=== PATIENT | female | born 1945 | race Caucasian/White ===

== ENCOUNTER 2016-05-25 03:37 | Inpatient (IN) | payer OTHER, MEDICARE ==
[~2016-05-25] VITALS: Ht 167.6 cm; Wt 74.8 kg
[~2016-05-25 03:37] MED LIST: ASPIRIN EC325 M2 PO; COLACE100 M1 PO; COZAAR50 M1 PO; DILAUDID2 M1 PO; DILTIAZEM 24HR120 MG PO; MIRALAX17 G1 PO; PRAVACHOL40 M1 PO; ZOLPIDEM TARTRA10 M1 PO
--- NOTE | 2016-05-25 12:36 | Admission Core Measures ---
Admission Meds I reviewed the following Meds: Current Medications Sig/Yesi Start time Last Medication Dose Stop Time Status Admin Acetaminophen 975 MG ONCE 05/25 0000 NR (Tylenol) 05/25 2358 Cefazolin Sodium 2,000 MG ONCE 05/25 0000 NR (Kefzol-Ancef Inj) 05/25 2358 Diltiazem HCl 120 MG DAILY 05/26 1000 UNVr (Cardizem CD) Losartan Potassium 50 MG DAILY 05/26 1000 UNVr (Cozaar) Oxycodone HCl 10 MG ONCE 05/25 0000 NR (Roxicodone) 05/25 2358 Pravastatin Sodium 40 MG DAILY 05/26 1000 UNVr (Pravachol) Ropivacaine 500 ML ONCE ONE 05/25 1230 AC (NAROPIN) 05/27 0609 ON-Q Ball 1 BAG Zolpidem Tartrate 10 MG QPM 05/25 2200 UNVr (Ambien) Acute Coronary Syndrome Inclusion Criteria ACS Diagnosis No Inpatient Core Measures LDL Reminder: If No, please order W/I first 24hr of stay Congestive Heart Failure Inclusion Criteria CHF Diagnosis No Cerebrovascular accident Inclusion Criteria CVA/TIA Diagnosis No Inpatient Core Measures Bedside Swallow Eval Reminder: If BSE failed, place ST order Antithrombotic Reminder: Order Antithrombotic Medication by end of day 2 Antithrombotic Reminder: Document Reason Antithrombotic Not ordered by end of day 2 AFIB/Flutter Reminder: If Present, add to problem list AFIB/Flutter Reminder: Order Anticoag Medication for pts with AFIB/Flutter Atherosclerosis Reminder: If Present, add to problem list LDL Reminder: If No, please order W/I first 24hr of stay PT Order Reminder: If No, please order Venous thromboembolism Inpatient Core Measures VTE Risk Factors: Age > 40, Surgery VTE Prophylaxis Ordered Inpt [facility] No [facility] VTE prophylaxis d/t No contraindications No VTE Pharm Prophylaxis d/t No contraindications Inclusion Criteria - Per Current guidelines, there needs to be overlap - treatment for the first 5 days of Warfarin therapy. - Parenteral Anticoagulation (IV or SC) needs to be - given along with Warfarin therapy. VTE Diagnosis No VTE Type NONE VTE Confirmed by (Test) NONE Problem List As ranked by this Provider includes Assessment & Plan 1. Unilateral primary osteoarthritis, left knee HOME MEDS Home Med List Diltiazem HCl (Diltiazem 24HR ER) 120 MG CAP.ER.24H 1 CAP PO DAILY HEART ( Reported) Docusate Sodium (Colace) 100 MG CAPSULE 1 CAP PO DAILY CONSTIPATION (Reported ) Losartan Potassium (Cozaar) 50 MG TABLET 1 TAB PO DAILY BP (Reported) Pravastatin Sodium (Pravachol) 40 MG TABLET 1 TAB PO DAILY CHOLESTEROL ( Reported) Zolpidem Tartrate 10 MG TABLET 1 TAB PO QPM SLEEP (Reported)
[2016-05-25] MEDS ORDERED: ASPIRIN EC325 M2 PO (12:39)
[2016-05-25] MEDS ORDERED: MIRALAX17 G1 PO (12:39)
[2016-05-25] MEDS ORDERED: MS CONTIN15 M2 PO (12:39)
[2016-05-25] MEDS ORDERED: DILAUDID2 M1 PO (12:39)
[2016-05-25] MEDS ORDERED: COLACE100 M1 PO (12:39)
--- NOTE | 2016-05-25 12:42 | Patient Discharge Instructions ---
Discharge Instructions General Discharge Information You were seen/treated for: Left knee pain You had these procedures: Left total knee replacement Watch for these problems: Increasing pain, redness, warmth, swelling. Drainage of any type from incision. Inability to bear weight on left leg. Do not soak the wound: Yes No bath, but you may shower: Yes Special Instructions: Incision: Dry dressing. May shower. No baths. No ointments of any kind. Ice as needed. Bowel regimen: Colace and or MiraLAX Weight-bearing as tolerated Follow-up with Dr. Mullins in 6 weeks. Call office for fevers greater than 101.5, excessive drainage or inability to bear weight on operative extremity. Visiting nurse will change dressing. Diet Continue normal diet: Yes Recommended Diet: Heart Healthy Additional DIET Information: Advance diet as tolerated Activity Full Activity/No Limits: No Activity Self Limited: Yes Pounds, do NOT lift more than: 10 Additional ACTIVITY Info: Weight-bear as tolerated on left leg Acute Coronary Syndrome Inclusion Criteria At DC or during hospital stay patient has or had the following: ACS DIAGNOSIS No Discharge Core Measures Meds if any: Prescribed or Continued at Discharge Meds if any: NOT Prescribed or Continued at Discharge Congestive Heart Failure Inclusion Criteria At DC or during hospital stay patient has or had the following: CHF DIAGNOSIS No Discharge Core Measures Meds if any: Prescribed or Continued at Discharge Meds if any: NOT Prescribed or Continued at Discharge Cerebrovascular accident Inclusion Criteria At DC or during hospital stay patient has or had the following: CVA/TIA Diagnosis No Discharge Core Measures Meds if any: Prescribed or Continued at Discharge Meds if any: NOT Prescribed or Continued at Discharge Venous thromboembolism Inclusion Criteria VTE Diagnosis No VTE Type NONE VTE Confirmed by (Test) NONE Discharge Core Measures - Per Current guidelines, there needs to be overlap - treatment for the first 5 days of Warfarin therapy. - If discharged on Warfarin prior to 5 days of - overlap therapy, the patient will need to be - assessed for post discharge needs including - *Post discharge parental anticoagulation - *Warfarin and/or parental anticoagulation education - *Follow up date to check INR post discharge At least 5 days overlap therapy as Inpatient No Meds if any: Prescribed or Continued at Discharge Note: Overlap Therapy is Warfarin and Anticoagulant Meds if any: NOT Prescribed or Continued at Discharge
--- NOTE | 2016-05-25 12:44 | Surgical Discharge Summary ---
See Addendum Visit Information Visit Dates Admission Date: 05/25/16 Discharge Date: 05/28/16 History of Present Illness Chief Complaint: Left knee pain Medical History History of MRSA: No History of VRE: No History of CDIFF: No Isolation History: Standard Pneumonia Vaccine: 02/19/14 Surgical History Pertinent Surgical History: BILATERAL MASTECTOMY CYSTOCEL REPAIR CHOLESYSTECTOMY TONSILLS REMOVED VAGINAL HYSTERECTOMY TUBES TIED REPAIR OF BILAT BREAST IMPLANTS Psychosocial History Who Do You Live With? Spouse What is Your Primary Language? Nigerien Review of Systems: See H&P Hospital Course Course Attending Physician: IAN GALDAMEZ MD Primary Care Physician: JOE RUVALCABA,[place] Hospital Course: Patient was admitted to the hospital on 05/25/2016 for an elective left total knee replacement. She tolerated the procedure well. She was transferred to a general surgical floor. Her diet was advanced and tolerated. Her vital signs were stable and within normal limits. She voided spontaneously. Her pain was well controlled. She was evaluated and treated by physical therapy. She was deemed appropriate for discharge. Allergies: Coded Allergies: No Known Allergies (12/24/15) Disposition Summary Disposition Principal Diagnosis: Left knee unilateral primary osteoarthritis Additional Diagnosis: None Discharge Disposition: home health services Discharge Instructions General Discharge Information Code Status: Full Code Patient's Diet: Heart healthy, advance as tolerated Patient's Activity: Weight-bear as tolerated on left leg Follow-Up Instructions/Appts: Incision: Dry dressing. May shower. No baths. No ointments of any kind. Ice as needed. Bowel regimen: Colace and or MiraLAX Weight-bearing as tolerated Follow-up with Dr. Galdamez in 6 weeks. Call office for fevers greater than 101.5, excessive drainage or inability to bear weight on operative extremity. Visiting nurse will change dressing. Medications at Discharge Discharge Medications: Stop taking the following medications: Docusate Sodium (Colace) 100 MG CAPSULE ORAL DAILY Continue taking these medications: Losartan Potassium (Cozaar) 50 MG TABLET 1 Tablet ORAL DAILY Comments: Last Taken:12/31/15 Time:1031AM Diltiazem HCl (Diltiazem 24HR ER) 120 MG CAP.ER.24H 1 Capsule ORAL DAILY Comments: Last Taken:12/31/15 Time:1030AM Pravastatin Sodium (Pravachol) 40 MG TABLET 1 Tablet ORAL DAILY Comments: Last Taken:12/30/15 Time:845PM Zolpidem Tartrate (Zolpidem Tartrate) 10 MG TABLET 1 Tablet ORAL Every night Comments: Last Taken:12/30/15 Time:845PM Start taking the following new medications: Morphine Sulfate (Ms Contin) 15 MG TABLET.ER 1 Tablet ORAL TWICE DAILY Qty = 6 No Refills Hydromorphone HCl (Dilaudid) 2 MG TABLET 1-2 Tablet ORAL Q4-6H as needed for PAIN Qty = 36 No Refills Aspirin (Ecotrin*) 325 MG TABLET.DR 1 Tablet ORAL TWICE DAILY Qty = 60 No Refills Docusate Sodium (Colace) 100 MG CAPSULE 1 Capsule ORAL TWICE DAILY Qty = 14 No Refills Instructions: DISCONTINUE USE IF YOU DEVELOP LOOSE STOOL OR DIARRHEA Polyethylene Glycol 3350 (Miralax) 17 GRAM POWD.PACK 1 Packet ORAL DAILY Qty = 7 No Refills Instructions: dissolve in water, DISCONTINUE USE IF YOU DEVELOP LOOSE STOOL OR DIARRHEA
--- NOTE | 2016-05-25 14:24 | Operative Report ---
Operative/Inv Procedure Report Surgery Date: 05/25/16 Name of Procedure: Left total knee replacement Pre-Operative Diagnosis: Primary left knee DJD Post-Operative Diagnosis: Same Estimated Blood Loss: 50ml to 100ml Surgeon/Grinding Machine Operator Portable: DENICE RUVALCABA,IAN Dias Anesthesia: block Operative/Procedure Note Note: Description of Procedure: The patient was taken to the operating room and positively identified. After induction of spinal anesthesia and administration of appropriate pre-operative antibiotics, the patient was positioned supine on the operating room table and all bony prominences were well padded. A well-padded pneumatic tourniquet was placed on the left upper thigh. After performing a surgical timeout, the left lower extremity was prepped and draped in the usual sterile fashion. After exsanguination with Esmarch the tourniquet was inflated to 250mm of mercury. A standard medial parapatellar approach was made to the knee. This was carried down through skin and subcutaneous tissue to the level of the fascia. Meticulous hemostasis was maintained with Bovie electrocautery. The extensor mechanism and patellar retinaculum were opened sharply and the patella was everted. The infrapatellar fat was resected in order to improve exposure. Osteophytes were trimmed from the patella and femoral condyles and the patella was re-everted and tucked laterally. A medial release was performed and the cruciate ligaments were resected. The tibia was then subluxed anteriorly. Utilizing the appropriate extra-medullary guide, the proximal tibia was trimmed perpendicular to the long axis of the tibial shaft. Attention was then turned to the femur. After opening the medullary canal, the distal femoral cut was made in 6 degrees of valgus utilizing the appropriate intra-medullary guide. The extension gap was checked and found to be appropriate. The femur was then sized and the remainder of the femoral cuts were made with a size 4 4-in-1 femoral cutting guide. The flexion gap was checked and found to be symmetric and appropriate. The knee was then trialed with a size 4 femoral component, a size 4 tibial component and a size 9 mm polyethylene insert. The patella was trimmed to accept an A 35 patella. This yielded excellent range of motion, stability and patellar tracking. All trial components were removed and the knee was copiously irrigated with sterile saline. All components were cemented into place with Cary Simplex cement. All the components were of the Fazal Triathlon knee system of the above stated sizes. The knee was again irrigated after cementation. The extensor mechanism and patellar retinaculum were repaired using interrupted #1 vicryl suture. The skin was re-approximated with 2-0 vicryl and closed with camacho. A sterile dressing was applied, the tourniquet was deflated, the patient was awakened and taken to the recovery room in satisfactory condition.
[2016-05-25 15:22] VITALS: BP 136/80
--- NOTE | 2016-05-25 15:47 | PN- Orthopedic ---
Subjective Subjective: POC S/P LEFT TKA COMFORTABLE, NO MAJOR COMPLAINTS DENIES CP, SOB, NO N+V Objective Vital Signs and I&Os YES Physical Exam: CV: RRR LUNGS: CLEAR ABD: +BS, NT/ND, EXT: LEFT LE DRSG DRY DISTAL CMS INTACT ONQ IN PLACE RAMON: CLEAR URINE Assessment/Plan Assessment/Plan ORTHO STABLE PLAN D/C IVF, D/C RAMON ASA FOR DVT PROPHYLAXIS ALPS OOB WITH PT WBAT LEFT LEG HOME D/C PLANNING Core Measures/Miscellaneous Venous Thromboembolism VTE Risk Factors: Age > 40, Surgery VTE Contraindications: No Contraindications VTE Prophylaxis Ordered Inpt: Mech & Pharm VTE Diagnosis: No VTE Type: NONE VTE Confirmed by (Test): NONE Beta Sterling Is Beta Sterling a Home Med? Yes Antibiotics Is Patient on Antibiotics? Yes
[2016-05-25 18:19] VITALS: BP 140/70
[2016-05-25 20:00] VITALS: BP 140/60
[2016-05-25 20:12] VITALS: BP 140/70
[2016-05-25 22:13] VITALS: BP 130/70
--- NOTE | 2016-05-25 22:42 | NUR ---
1522 PATIENT ARRIVED TO FLOOR BED LOW AND LOCKED. CALL LIGHT WITHIN REACH ALERT AND ORIENTED X 3. VITAL SIGNS STABLE. ON 2L VIA NASAL CANNULA. DRESSING TO LEFT KNEE IS CLEAN, DRY, AND INTACT. NO DISTRESS NOTED AT THIS TIME. WILL COMINUE TO MONITOR
[2016-05-26] VITALS (7 sets, daily range): BP systolic 112–160; BP diastolic 54–80
--- NOTE | 2016-05-26 07:20 | PN- Orthopedic ---
Subjective Subjective: NAEO. Patient without new c/o. Pain controlled. Tolerating diet without n/v. Has been OOB and ambulating about 4 times so far. Denies numbness/tingling in LLE. Voiding. Denies CP/SOB. Objective Vital Signs and I&Os Vital Signs Date Time Temp Pulse Resp B/P Pulse O2 O2 Flow FiO2 Ox Delivery Rate 05/26 0640 97.6 71 18 122/68 94 Room Air 05/26 0153 97.7 74 18 128/70 95 Room Air 05/25 2213 97.7 86 20 130/70 93 Room Air 05/25 2011 98.0 60 20 140/70 95 Room Air 05/25 1999 98.0 60 20 140/60 95 Room Air 05/25 1819 97.7 67 20 140/70 96 Room Air 05/25 1557 99 Nasal 2.0L Cannula 05/25 1522 97.8 55 28 136/80 99 Nasal 2.0L Cannula Intake & Output 05/26 0800 05/26 0000 05/25 1600 05/25 0800 05/25 0000 05/24 1600 Intake Total 500 Output Total 700 Balance -200 Intake, Oral 500 Output, Urine 700 Patient 165 lb Weight Physical Exam: General: NAD, comfortable, A&Ox3 Chest: NRD, breathing comfortably on RA. RRR. Abdomen: soft, nontender, nondistended. Ext: Left knee dressing c/d/i. Left on-q pump in place. No calve swelling/TTP, neurovascularly intact bilateral lower extremities Current Medications: Current Medications Sig/Yesi Start time Last Medication Dose Route Stop Time Status Admin Acetaminophen 650 MG Q4P PRN 05/25 1600 AC PO Acetaminophen 975 MG ONCE 05/25 0000 DC PO 05/25 235 Aspirin 325 MG BID 05/25 2199 AC 05/25 PO 2123 Cefazolin Sodium 2 GM Q8H 05/25 1800 DC 05/26 N/A 1 UNIT IV 05/26 0229 0149 Cefazolin Sodium 2 GM IQ8 05/25 1600 DC N/A 1 UNIT IV 05/26 0029 Cefazolin Sodium 2,000 MG ONCE 05/25 0000 DC IV 05/25 2359 Diltiazem HCl 120 MG DAILY 05/26 1000 DC PO Diltiazem HCl 120 MG DAILY 05/26 1000 AC PO Docusate Sodium 100 MG BID 05/25 2200 AC 05/25 PO 2123 Fentanyl Citrate 100 MCG .STK-MED ONE 05/25 09 DC IM 05/25 09 Hydromorphone HCl 2 MG Q4P PRN 05/25 1600 AC 05/26 PO 0635 Hydromorphone HCl 4 MG Q4P PRN 05/25 1600 AC 05/25 PO 1857 Ketorolac 15 MG Q6-PRN PRN 05/25 1545 AC Tromethamine IV Losartan Potassium 50 MG DAILY 05/26 1000 DC PO Losartan Potassium 50 MG DAILY 05/26 1000 AC PO Midazolam HCl 2 MG .STK-MED ONE 05/25 09 DC IM 05/25 0927 Morphine Sulfate 2 MG Q2P PRN 05/25 1600 AC IV Omeprazole 40 MG DAILY AC 05/26 0700 AC 05/26 PO 0623 Ondansetron HCl 4 MG Q6P PRN 05/25 1600 AC IV Oxycodone HCl 10 MG .STK-MED ONE 05/25 1159 DC PO 05/25 1200 Oxycodone HCl 10 MG ONCE 05/25 0000 DC PO 05/25 2359 Polyethylene Glycol 17 GM DAILY 05/26 1000 AC PO Pravastatin Sodium 40 MG DAILY 05/26 1000 DC PO Pravastatin Sodium 40 MG DAILY 05/26 1000 AC PO Promethazine HCl 12.5 MG Q6P PRN 05/25 1600 AC IV 06/01 1229 Ropivacaine 500 ML ONCE ONE 05/25 1600 AC 05/25 ON-Q Ball 1 BAG INJ 05/27 0939 1600 Ropivacaine 500 ML ONCE ONE 05/25 1230 DC ON-Q Ball 1 BAG INJ 05/27 0609 Tranexamic Acid 1,000 MG .STK-MED ONE 05/25 09 DC IV 05/25 09 Zolpidem Tartrate 10 MG QPM 05/25 2200 DC PO Zolpidem Tartrate 10 MG QPM 05/25 2200 AC 05/25 PO 2124 Results Last 48 Hours of Labs: Laboratory Tests 05/26 05/26 0640 0600 Chemistry Sodium Pending Cancelled Potassium Pending Cancelled Chloride Pending Cancelled Carbon Dioxide Pending Cancelled Anion Gap Pending Cancelled BUN Pending Cancelled Creatinine Pending Cancelled BUN/Creatinine Ratio Pending Cancelled Hematology CBC w Diff Pending Cancelled WBC Pending Cancelled RBC Pending Cancelled Hgb Pending Cancelled Hct Pending Cancelled MCV Pending Cancelled MCH Pending Cancelled RDW Pending Cancelled Plt Count Pending Cancelled MPV Pending Cancelled PUBS MCHC Pending Cancelled Assessment/Plan Assessment/Plan 71yo F POD#1 s/p left TKA. AVSS, patient stable. - pain control - DC IVF - OOB and ambulate with PT - bowel regimen - I/O's - f/u a.m. labs - ASA 325mg PO BID - ALPS - Likely dc tomorrow - will d/w attending Core Measures/Miscellaneous Venous Thromboembolism VTE Risk Factors: Age > 40, Surgery VTE Contraindications: No Contraindications VTE Prophylaxis Ordered Inpt: Mech & Pharm VTE Diagnosis: No VTE Type: NONE VTE Confirmed by (Test): NONE Beta Sterling Is Beta Sterling a Home Med? Yes Antibiotics Is Patient on Antibiotics? No
[2016-05-26 08:12] LABS: ABSOLUTE BASOPHIL COUNT 0 /CUMM (0.0-0.2); ABSOLUTE EOSINOPHIL COUNT 0 /CUMM (0.0-0.7); ABSOLUTE GRANULOCYTE CT 13.6 /CUMM (1.4-6.5); ABSOLUTE LYMPH COUNT 0.9 /CUMM (1.2-3.4); ABSOLUTE MONOCYTE COUNT 0.5 /CUMM (0.10-0.60); BASOPHIL % 0.2 % (0.0-2.0); EOSINOPHIL % 0 % (0-5); MEAN CORPUSCULAR HGB 30.5 PG (27.0-31.0); MEAN CORPUSCULAR HGB CONC 34.1 G/DL (33.0-37.0); MEAN CORPUSCULAR VOLUME 89.3 FL (81.0-99.0); MEAN PLATELET VOLUME 8.9 FL (7.4-10.4); PLATELET COUNT 141 /CUMM (130-400); RBC DISTRIBUTION WIDTH 12.8 % (11.5-14.5); RED BLOOD CELL CT 4.48 /CUMM (4.20-5.40); WHITE BLOOD CELL COUNT 15.1 /CUMM (4.8-10.8)
[2016-05-26 10:00] LABS: GRANULOCYTE % 90.2 % (42.2-75.2)
--- NOTE | 2016-05-26 10:00 | NUR ---
PT C/O OF PAIN, TOO SOON FOR PO DILAUDID, ADMINISTERED IV TORADOL PER ORDER FOR PAIN 10/29. PT AMUBLATED W/ PHYSICAL THERAPY, PER PHYSICAL THERAPY PT DIZZY AND WAS WHEELED BACK TO BED. THIS RN CHECKED BP @ 128/64. NOTIFIED EVAN MCCLURE, RECHECKED BP @ 130/70. ADMINISTERED AM MEDICATIONS. PT STABLE ONCE IN ROOM, DENIES ANY FURTHER SYMPTOMS. WILL CONTINUE TO MONITOR.
--- NOTE | 2016-05-26 16:14 | NUR ---
THIS RN ASSUMED CARE OF PT. PT ON-Q PUMP RATE INFUSING AT 14ML/HR PER REPORT RATE WAS TO BE AT 12ML/HR. EVAN MCCLURE CALLED. NO ORDERS IN CHART FOR RATE OF 14ML/HR. PER EVAN MCCLURE ? CHNAGE BY ANESTHESIA. NO NOTE PRESENT. PER EVAN MCCLURE. 14ML/HR OK TO BE INFUSING. WILL MONITOR NO S/SX TOXICITY PRESENT. PT A/OX 3.
--- NOTE | 2016-05-27 00:37 | NUR ---
ALERT AND ORIENTED X 3. VITAL SIGNS STABLE. ON ROOM AIR. DSG TO LEFT KNEE IS C/D/I. MEDICATION GIVEN FOR PAIN. WILL CONTINUE TO MONITOR
[2016-05-27 06:00] VITALS: BP 136/60
[2016-05-27 08:07] VITALS: BP 136/60
--- NOTE | 2016-05-27 08:09 | PN- Orthopedic ---
Subjective Subjective: POD#2 S/P LEFT TKA FELLING BETTER TO DAY DENEIS C/P, SOB, NO N+V WITH DIET TOLERATING DIET NO BM Objective Vital Signs and I&Os Vital Signs Date Time Temp Pulse Resp B/P Pulse O2 O2 Flow FiO2 Ox Delivery Rate 05/27 0600 97.9 61 18 136/60 98 Room Air 05/26 2304 97.5 74 20 112/54 94 Room Air 05/26 1822 124/54 05/26 1600 97.8 52 20 138/62 99 Room Air 05/26 1352 97.7 60 18 160/80 97 Room Air 05/26 1035 71 130/70 05/26 0951 96.8 76 20 128/64 95 Room Air Intake & Output 05/27 1600 05/27 0800 05/27 0000 05/26 1600 05/26 0800 05/26 0000 Intake Total 240 800 720 250 500 Output Total 400 200 700 Balance 240 800 320 50 -200 Intake, IV 10 Intake, Oral 240 800 720 240 500 Number 0 0 Bowel Movements Output, Urine 400 200 700 Physical Exam: CV: RRR LUNGS: CLEAR ABD: SOFT, +BS EXT; DRSG CHANGED, WOUND C/D/I NO CALF TENDERNESS DISTAL CMS INTACT Assessment/Plan Assessment/Plan ORTHO STABLE PLAN OOB WITH PT/STAIRS POSSIBLE D/C LATER TODAY Core Measures/Miscellaneous Venous Thromboembolism VTE Risk Factors: Age > 40, Surgery VTE Contraindications: No Contraindications VTE Prophylaxis Ordered Inpt: Mech & Pharm VTE Diagnosis: No VTE Type: NONE VTE Confirmed by (Test): NONE Beta Sterling Is Beta Sterling a Home Med? Yes Antibiotics Is Patient on Antibiotics? No
== END 2016-05-27 13:13 | disposition home health service (06) | DRG 470 ==
LOC: 2NA 03:37 → SDA 03:37 → 2NA 15:22
PROVIDERS: Nurse Practitioner; ADMIT Orthopaedic Surgery
PROC: 0SRD0J9 Replacement of Left Knee Joint with Synthetic Substitute, Cemented, Open Approach (ICD-10-PCS; principal; 2016-05-25)
DX: M17.12 Unilateral primary osteoarthritis, left knee (principal); I10 Essential (primary) hypertension
CPT/HCPCS: 2NAP; 2NASP; 36415; 82436; 87086; 88305; 97001-GP; 97110-GO; 97116-GO; 97161-GP; 97530-GO; C1713; J0690; J2550; J2795